=== PATIENT | female | born 2000 ===

== ENCOUNTER 2020-11-14 02:08 | Inpatient (IN) | payer MEDICAID ==
[~2020-11-14] VITALS: Ht 157.5 cm; Wt 53.5 kg
[2020-11-14] MEDS ORDERED: ZOLPIDEM TARTRATE 10 MG TABLET PO PRN (06:45)
[2020-11-14] MEDS ORDERED: LORazepam 2 MG TABLET PO PRN (06:45)
[2020-11-14] MEDS ORDERED: QUEtiapine FUMARATE 100 MG TABLET PO PRN (06:45)
[2020-11-14 09:19] VITALS: BP 128/75
[2020-11-14] MEDS ORDERED: INFLUENZA VIRUS VACCINE QVS 2020-21 (6MO+)/PF 60 MCG/0.5 ML SYRINGE IM ONE (10:45)
[2020-11-14 16:25] VITALS: BP 110/57
[2020-11-15 05:29] VITALS: BP 121/80
[2020-11-15] MEDS ORDERED: MAG HYDROX/AL HYDROX/SIMETH ES 30 ML SUSPENSION UDCUP PO PRN (08:00)
[2020-11-15] MEDS ORDERED: MAGNESIUM HYDROXIDE SUSPENSION 30 ML UDCUP PO PRN (08:00)
[2020-11-15] MEDS ORDERED: ALBUTEROL SULFATE HFA 90 MCG/PUFF 8 GM INHALER IH PRN (08:00)
[2020-11-15] MEDS ORDERED: PETROLATUM,WHITE 28 GM JELLY TP PRN (08:00)
[2020-11-15] MEDS ORDERED: CloNIDine HCL 0.1 MG TABLET PO PRN (08:00)
[2020-11-15] MEDS ORDERED: LOPERAMIDE HCL 2 MG CAPSULE PO PRN (08:00)
[2020-11-15] MEDS ORDERED: DOCUSATE SODIUM 100 MG CAPSULE PO PRN (08:00)
[2020-11-15] MEDS ORDERED: ONDANSETRON HCL 4 MG TABLET PO PRN (08:00)
[2020-11-15] MEDS ORDERED: IBUPROFEN 400 MG TABLET PO PRN (08:00)
[2020-11-15] MEDS ORDERED: NICOTINE 14 MG/24 HOUR PATCH TD PRN (08:00)
[2020-11-15] MEDS ORDERED: ACETAMINOPHEN 325 MG TABLET PO PRN (08:00)
[2020-11-15] MEDS ORDERED: GuaiFENesin/D-METHORPHAN [SUGAR-FREE] 200-20MG/10 ML SYRUP UDCUP PO PRN (08:00)
[2020-11-15 08:16] VITALS: BP 121/69
[2020-11-15 10:33] LABS: FREE T4 (FREE THYROXINE) 1.4 ng/dL (0.76-1.46); THYROID STIMULATING HORMONE 0.8 uIU/mL (0.36-3.74)
[2020-11-15 16:07] VITALS: BP 121/73
[2020-11-15] MEDS: CIPROFLOXACIN HCL 500 MG TABLET PO SCH (16:56)
[2020-11-16 04:07] VITALS: BP 147/72
[2020-11-16] MEDS: CIPROFLOXACIN HCL 500 MG TABLET PO SCH (08:12)
[2020-11-16 08:28] VITALS: BP 118/68
[2020-11-16] MEDS ORDERED: CIPR-278 PO ×2 (10:50→10:51)
== END 2020-11-16 13:51 | disposition home or self-care (01) | DRG 753 ==
LOC: B2S 07:04
PROVIDERS: ADMIT Psychiatry & Neurology Psychiatry; ATTEND Psychiatry & Neurology Psychiatry
DX: F31.60 Bipolar disorder, current episode mixed, unspecified (principal); F43.10 Post-traumatic stress disorder, unspecified; Z82.1 Family history of blindness and visual loss; Z87.820 Personal history of traumatic brain injury; R03.0 Elevated blood-pressure reading, without diagnosis of hypertension; R45.851 Suicidal ideations
CPT/HCPCS: 84439; 84443; 86592